=== PATIENT | female | born 1945 | race Caucasian/White ===

== ENCOUNTER 2017-07-12 05:37 | Day surgery (SDC) | payer BC ==
[2017-07-09 13:30] LABS: HEMATOCRIT 46.1 % (36.0-48.0)
[2017-07-09 13:47] LABS: BUN (BLOOD UREA NITROGEN) 15 MG/DL (6-23); CALCIUM, SERUM 9.5 MG/DL (8.5-10.4); CHLORIDE, SERUM 101 MMOL/L (96-112); CO2 (CARBON DIOXIDE) 31 MMOL/L (24-34); CREATININE 0.99 MG/DL (0.55-1.02); GFR AFRICAN AMERICAN 66 ML/MIN (>=60); GFR NON AFRICAN AMERICAN 57 ML/MIN (>=60); GLUCOSE, SERUM 159 MG/DL (60-99); POTASSIUM, SERUM 3.8 MMOL/L (3.5-5.3); SODIUM, SERUM 136 MMOL/L (135-148)
[~2017-07-12] VITALS: Ht 177.8 cm; Wt 95.7 kg
--- NOTE | ~2017-07-12 | OP ---
Record Of Operation [facility] [address] [place]. [address] NAME: MAGGIE KHAN : 45 STATUS : REG [facility] PAT#: [id number] AGE: 71 ADM/REG DATE : 07/12/17 MR#: [id number] REPORT SERV DATE: 07/12/17 DICTATED BY: TYSON ANDINO DATE: 07/12/17 REPORT STATUS : Draft TRANSCRIBED BY: MODL DATE: 07/12/17 DATE OF PROCEDURE: 07/12/2017 PREOPERATIVE DIAGNOSIS: Thin level malignant melanoma, left chin. POSTOPERATIVE DIAGNOSIS: Thin level malignant melanoma, left chin. PROCEDURE PERFORMED: Wide local excision, 8 mm, left chin thin melanoma with 3 cm x 3 cm defect. INBOUND SALES REPRESENTATIVE: Johnny Troncoso. ANESTHESIA: MAC. COMPLICATIONS: None. CONDITION: Stable to recovery. INDICATIONS: A 71-year-old female with thin level melanoma of the left chin with shave biopsy indeterminate true depth of invasion. The risks, benefits, and alternatives to wide excision with delayed closure were explained, and she agreed. PROCEDURE IN DETAIL: The patient was identified in preoperative holding taken back to the operating room, and placed supine on the operating room table. MAC anesthesia was established with propofol. Left chin was examined. Biopsy site 8 mm and a 1 cm margin was marked around it. It was infiltrated with 3 mL of 1% lidocaine with 1:100,000 epinephrine. After a time-out was called and the patient procedure were confirmed. She was then prepped and draped in a standard fashion for the operation. Using 2.5X loupe magnification and headlight illumination, the operation commenced. A 15C blade was used to make the skin incision and the needle tip cautery on 20 coagulation was used to excise the lesion off the mentalis fascia as the deep margin. It was stitched to 12 o'clock and sent for stat pathology analysis. The defect was 3 cm in diameter and was intact. The edges were tacked to the mentalis fascia with 3-0 interrupted Vicryl sutures. Surgicel and Dermabond were placed followed by a large Band-Aid. The patient was awakened and taken to recovery in stable condition. PH/MODL Tyson Andino M.D. / [id number] CC: Record Of Operation [place] [address] [facility] [place] [address] NAME: MAGGIE KHAN : 45 STATUS : REG [facility] PAT#: [id number] AGE: 71 ADM/REG DATE : 07/12/17 MR#: [id number] REPORT SERV DATE: 07/12/17 DICTATED BY: TYSON ANDINO DATE: 07/12/17 REPORT STATUS : Draft TRANSCRIBED BY: MODL DATE: 07/12/17 Fahad Osorio M.D.
[~2017-07-12 05:37] MED LIST: CITRACAL PO; COZAAR100 MG PO; FISH-EPA1000 MG PO; MULTIPLE VIT PO; PROZAC PO
[2017-07-16] MEDS ORDERED: TYLENOL PM PO (11:08)
== END 2017-07-12 10:24 | disposition home or self-care (01) ==
LOC: SDC 05:37
PROVIDERS: Specialist
PROC: 0HB1XZZ Excision of Face Skin, External Approach (ICD-10-PCS; principal; 2017-07-12 07:15)
DX: D03.39 Melanoma in situ of other parts of face (principal); I10 Essential (primary) hypertension; K21.9 Gastro-esophageal reflux disease without esophagitis; Z88.2 Allergy status to sulfonamides; Z79.899 Other long term (current) drug therapy; Z90.710 Acquired absence of both cervix and uterus; Z90.49 Acquired absence of other specified parts of digestive tract; Z98.890 Other specified postprocedural states
CPT/HCPCS: 80048; 85014; 85018; 88305; 93005; J0690; J2250; J2405